=== PATIENT | male | born 1995 | race Two or more races ===

== ENCOUNTER 2020-07-06 14:43 | Emergency (ER) | payer OTHER ==
[~2020-07-06] VITALS: Ht 165.1 cm; Wt 72.1 kg
--- NOTE | 2020-07-06 14:57 | NUR ---
CAME IN FOR NASAL PAIN, SWELLING, AND ABRASIONS FROM NAIL GUN. TO ER BED 10, HOOKED TO MONITOR, CHANGED TO HOSP GOWN, WARM BLANKET PROVIDED, PATIENT AAO x 4, BREATHING EVEN AND UNLABORED, AWAITING MD BUTCHER.
--- NOTE | 2020-07-06 15:18 | NUR ---
DR PÉREZ AT BEDSIDE
[2020-07-06] MEDS ORDERED: TDAP [DIPH/PERTUSSIS/TET] 0.5 ML VIAL IM ONE (15:33)
[2020-07-06 15:36] LABS: BASOPHILS # (AUTO) 0.1 /CMM (0.0-0.2); BASOPHILS % (AUTO) 0.6 % (0.0-2.0); EOSINOPHILS % (AUTO) 1.3 % (0.0-6.0); HEMATOCRIT 42 % (39-51); HEMOGLOBIN 14.1 g/dL (13.5-17.5); LYMPHOCYTES # (AUTO) 2.2 /CMM (0.8-4.8); LYMPHOCYTES % (AUTO) 27.1 % (20.0-44.0); MEAN CORPUSCULAR HGB CONC 34 g/dl (31.0-36.0); MEAN CORPUSCULAR VOLUME 89 fL (80-96); MONOCYTES # (AUTO) 0.6 /CMM (0.1-1.30); MONOCYTES % (AUTO) 6.8 % (2.0-12.0); NEUTROPHILS # (AUTO) 5.3 /CMM (1.8-8.9); NEUTROPHILS % (AUTO) 64.2 % (43.0-81.0); PLATELET COUNT (AUTO) 229 /CMM (150-450); RED BLOOD CELL COUNT(AUTO) 4.71 MIL/uL (4.5-6.0); WHITE BLOOD COUNT (AUTO) 8.2 K/uL (4.3-11.0)
[2020-07-06] MEDS: IV NS 0.9% 1,000 ML BAG IV ONE (15:37)
[2020-07-06] MEDS: TDAP [DIPH/PERTUSSIS/TET] 0.5 ML VIAL IM ONE (15:37)
[2020-07-06 15:49] LABS: ALANINE AMINOTRANSFERASE 34 U/L (12-78); ALBUMIN 4.2 g/dL (3.4-5.0); ALKALINE PHOSPHATASE 91 U/L (46-116); ASPARTATE AMINOTRANSFERASE 26 U/L (15-37); BILIRUBIN,DIRECT 0.1 mg/dL (0.0-0.2); BILIRUBIN,TOTAL 0.3 mg/dL (0.2-1.0); CALCIUM, SERUM 9.1 mg/dL (8.5-10.1); CARBON DIOXIDE 31 mmol/L (21-32); CHLORIDE 100 mmol/L (98-107); CREATININE 0.9 mg/dL (0.6-1.3); GLUCOSE 99 mg/dL (74-106); POTASSIUM 3.4 mmol/L (3.5-5.1); SODIUM SERUM 141 mmol/L (136-145); TOTAL PROTEIN, SERUM 7.6 g/dL (6.4-8.2); UREA NITROGEN, BLOOD 9 mg/dL (7-18)
[2020-07-06] MEDS: CEFAZOLIN 2 GM in IV D5W 100 ML IV ONE (16:10)
--- NOTE | 2020-07-06 16:15 | NUR ---
CALLED [facility] FOR TRAUMA TRANSFER, ETA 4O MINUTES.
[2020-07-06 17:14] VITALS: BP 125/66
--- NOTE | 2020-07-06 17:14 | NUR ---
PATIENT PICKED UP BY [facility] UN[facility] [address] CCT WITH RN ASAD MARIEE. PATIENT AWAKE, ALERT AND ORIENTED. VITALS TAKEN AND RECORDED. CLINICALS PROVIDED TO RN. PATIENT WILL BE BROUGHT TO [facility].
== END 2020-07-06 17:15 | disposition short-term general hospital (02) ==
LOC: ER 14:48
DX: S06.5X0A Traumatic subdural hemorrhage without loss of consciousness, initial encounter (principal); G93.89 Other specified disorders of brain; S00.31XA Abrasion of nose, initial encounter; W34.09XA Accidental discharge from other specified firearms, initial encounter; Y93.89 Activity, other specified; Y92.89 Other specified places as the place of occurrence of the external cause; Y99.0 Civilian activity done for income or pay
CPT/HCPCS: 36415; 70450; 70486; 80048; 80076; 84484; 85025; 85730; 90471; 90715; 96365; 99291; 99292; J0690; J7030; J7060